=== PATIENT | female | born 2000 | race Caucasian/White ===

== ENCOUNTER 2019-07-26 13:10 | Emergency (ER) | payer OTHER ==
[~2019-07-26] VITALS: Ht 152.4 cm; Wt 72.6 kg
[~2019-07-26 13:10] MED LIST: IBUP800 PO; Verotin-Gr Cap1 EACH
[2019-07-26] MEDS ORDERED: Norco 5-325 Ta1 EACH PO (16:49)
[2019-07-26] MEDS ORDERED: IBUP600 PO (16:49)
== END 2019-07-26 17:22 | disposition home or self-care (01) ==
LOC: ER 13:10
DX: S16.1XXA Strain of muscle, fascia and tendon at neck level, initial encounter (principal); S80.02XA Contusion of left knee, initial encounter; S60.511A Abrasion of right hand, initial encounter; V43.52XA Car driver injured in collision with other type car in traffic accident, initial encounter
CPT/HCPCS: 72040; 73130; 73562-LT; 99283-25; A9270-GY

== ENCOUNTER 2020-04-13 16:54 | Emergency (ER) | payer SELFPAY ==
[~2020-04-13] VITALS: Ht 152.4 cm; Wt 72.6 kg
[~2020-04-13 16:54] MED LIST changes: +IBUP600 PO; +Norco 5-325 Ta1 EACH PO
[2020-04-13] MEDS ORDERED: Ocuflox5 ML RIGHTEAR (17:20)
[2020-04-13] MEDS ORDERED: Maxidex15 ML RIGHTEAR (17:20)
== END 2020-04-13 17:21 | disposition home or self-care (01) ==
LOC: ER 16:54
DX: H60.91 Unspecified otitis externa, right ear (principal)
CPT/HCPCS: 99282

== ENCOUNTER → 2024-12-02 | Outpatient (CLI) | payer OTHER ==
[~2024-12-02] MED LIST changes: +Maxidex15 ML RIGHTEAR; +Ocuflox5 ML RIGHTEAR
[2024-12-02 20:26] LABS: Bacterial Vaginosis PCR Negative (NEGATIVE); Candida Group, PCR NOT DETECTED (NOT DETECT); Candida glabrata-krusei, PCR NOT DETECTED (NOT DETECT)
[2024-12-02 20:57] LABS: Chlamydia Trachomatis Vaginal NOT DETECTED (NOT DETECT); Neisseria Gonorrhoea Vaginal NOT DETECTED (NOT DETECT)
[2024-12-04 15:06] LABS: HEPATITIS B SURFACE ANTIGEN Negative (Negative)
[2024-12-04 18:52] LABS: HEPATITIS C AB CIA INTERP Negative (Negative); HEPATITIS C ANTIBODY CIA INDEX 0.05 IV
[2024-12-05 11:19] LABS: HIV 1,2 COMBO ANTIGEN/ANTIBODY Negative (Negative)
== END | disposition home or self-care (01) ==
LOC: LAB 17:14 → LAB SHORT 17:14
PROVIDERS: Registered Nurse Community Health
DX: Z11.3 Encounter for screening for infections with a predominantly sexual mode of transmission (principal); Z20.2 Contact with and (suspected) exposure to infections with a predominantly sexual mode of transmission
CPT/HCPCS: 81515; 86592; 86803; 87340; 87389; 87491; 87591

== ENCOUNTER → 2025-03-02 | Outpatient (CLI) | payer OTHER ==
[~2025-03-02] MED LIST changes: +Atarax10 MG PO; +Inderal 20 mg T20 MG PO; +ZOLOFT50 MG PO
== END | disposition home or self-care (01) ==
LOC: LAB 15:49 → LAB SHORT 15:49
DX: R30.0 Dysuria (principal)
CPT/HCPCS: 87077; 87086; 87186